=== PATIENT | female | born 1995 | race Caucasian/White ===

== ENCOUNTER 2019-02-05 12:16 | Emergency (ER) | payer OTHER ==
[~2019-02-05] VITALS: Ht 170.1 cm; Wt 92.5 kg
[2019-02-05] MEDS ORDERED: DEPO-PROVE150 MG/1 M IM (12:20)
[2019-02-05] MEDS ORDERED: NAPROSYN500 MG PO (12:43)
[2019-02-05] MEDS ORDERED: AMOXICILLIN500 M2 PO (12:43)
== END 2019-02-05 13:03 | disposition home or self-care (01) ==
LOC: ED 12:16
DX: K02.9 Dental caries, unspecified (principal)